=== PATIENT | male | born 1980 | race Caucasian/White ===

== ENCOUNTER 2019-05-20 20:44 | Emergency (ER) | payer SELFPAY ==
[~2019-05-20] VITALS: Ht 182.9 cm; Wt 89.8 kg
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
--- OUTSIDE RECORDS SUMMARY | 2019-05-20 20:48 | XMS REPORT | Clinical Summary ---
Author Author [facility] Address Unknown Phone Unavailable Care Team Providers Care Orchardist Name Role Phone Jorge Guillory MD PCP Allergies Comments Active Allergy Reactions Severity Noted Date Penicillins Anaphylaxis High 03/20/2019 Medications Not on file Active Problems Not on file Encounters Care Team Description Date Type Specialty Dakotah Angelo MD Feared condition not demonstrated (Primary Dx) 03/20/2019 Emergency Emergency Medicine after 05/19/2018 Social History Date Tobacco Use Types Packs/Day Years Used Former Smoker Smokeless Tobacco: Never Used Alcohol Use Drinks/Week oz/Week Comments Yes rarely Sex Assigned at Date Recorded Not on file Industry Job Start Date Occupation Not on file Not on file Not on file Travel End Travel History Travel Start No recent travel history available. Last Filed Vital Signs Time Taken Vital Sign Reading 03/20/2019 5:40 PM CDT Blood Pressure 120/74 03/20/2019 5:40 PM CDT Pulse 76 03/20/2019 5:40 PM CDT Temperature 36.4 C (97.6 F) 03/20/2019 5:40 PM CDT Respiratory Rate 16 03/20/2019 5:40 PM CDT Oxygen Saturation 100% - Inhaled Oxygen - Concentration 03/20/2019 2:16 PM CDT Weight 86.2 kg (190 lb) 03/20/2019 2:16 PM CDT Height 182.9 cm (6') 03/20/2019 2:16 PM CDT Body Mass Index 25.77 Plan of Treatment Not on file Procedures Comments Procedure Name Priority Date/Time Associated Diagnosis URINE DRUGS OF ABUSE STAT 03/20/2019 SCREEN 4:00 PM CDT ESTIMATED GFR STAT 03/20/2019 2:47 PM CDT ACETAMINOPHEN LEVEL STAT 03/20/2019 2:47 PM CDT SALICYLATE LEVEL STAT 03/20/2019 2:47 PM CDT ALCOHOL LEVEL, BLOOD STAT 03/20/2019 2:47 PM CDT COMPREHENSIVE METABOLIC STAT 03/20/2019 PANEL 2:47 PM CDT HC COMPLETE BLD COUNT STAT 03/20/2019 W/AUTO DIFF 2:47 PM CDT after 05/19/2018 Results * Urine drugs of abuse screen (03/20/2019 4:00 PM CDT) [facility] Amphetamine Negative [facility] screen, urine [facility] Barbiturate Negative [facility] screen, urine [facility] Benzodiazepine Positive (A) [facility] screen, urine [facility] Cocaine screen, Negative [facility] urine [facility] Methadone Negative [facility] metabolite [facility] (EDDP), urine [facility] Opiates screen, Negative [facility] urine [facility] Oxycodone Negative [facility] screen, urine [facility] Phencyclidine Negative [facility] screen, urine [facility] Tricyclic Negative [facility] screen, urine [facility] Cannabinoid Positive (A) [facility] screen, urine Comment: [facility] Drug screen minimum [place] concentration of detectability [facility]OSP[facility] Amphetamines 1000 ng/mL Barbiturates 200 ng/mL Benzodiazepines 300 ng/mL Cocaine 300 ng/mL Methadone 300 ng/mL Opiates 300 ng/mL Oxycodone 300 ng/mL Phencyclidine 25 ng/mL Cannabinoids 50 ng/mL Tricyclics 1000 ng/mL Results are from screening tests and should only be used for medical evaluation. Drug testing for legal purposes requires definitive (or confirmatory) testing methods, which are available upon request. Contact the laboratory if definitive testing is required. Specimen Urine Performing Organization Address City/State/Zipcode Phone Number [facility] [address] [address] PATHOLOGY AND GENOMIC MEDICINE [place] [facility] [address] [place] [address] [address] [place] [address] [facility] * Estimated GFR (03/20/2019 2:47 PM CDT) [facility] Estimated GFR >=90 mL/min/1.73 m2 [facility] Comment: [facility] G1 >=90 Normal or high G2 60-89Mildly decreased [id number] Mildly to moderately decreased [id number] Moderately to severely decreased G4 15-29Severely decreased G5 <15Kidney failure The eGFR was calculated using the Chronic Kidney Disease Epidemiology Collaboration (CKD-EPI) equation. Interpretation is based on recommendations of the National Kidney Foundation-Kidney Disease Outcomes Quality Initiative (NKF-KDOQI) published in 2014. Specimen Plasma specimen Performing Organization Address City/State/Zipcode Phone Number [facility] DEPARTMENT [address] [place] [address] PATHOLOGY AND GENOMIC MEDICINE [address] [place] [address] [facility] * CBC with platelet and differential (03/20/2019 2:47 PM CDT) WBC 12.8 (H) 4.5 - 11.0 k/uL [facility] RBC 4.87 4.40 - 6.00 M/uL [facility] HGB 14.4 14.0 - 18.0 g/dL [facility] HCT 42.5 41.0 - 51.0 % [facility] MCV 87.3 82.0 - 100.0 fL [facility] MCH 29.6 27.0 - 34.0 pg [facility] MCHC 33.9 31.0 - 37.0 g/dL [facility] RDW - SD 39.8 37.0 - 55.0 fL [facility] MPV 9.5 8.8 - 13.2 fL [facility] Platelet count 372 150 - 400 K/uL [facility] Nucleated RBC 0.00 /100 WBC [facility] Neutrophils 66.2 39.0 - 69.0 % [facility] Lymphocytes 25.6 25.0 - 45.0 % [facility] Monocytes 5.7 0.0 - 10.0 % [facility] Eosinophils 1.8 0.0 - 5.0 % [facility] Basophils 0.5 0.0 - 1.0 % [facility] Immature 0.2Comment: "Immature 0.0 - 1.0 % [facility] granulocytes granulocytes" (promyelocytes, [facility] myelocytes, metamyelocytes) [facility] Specimen Blood Performing Organization Address City/[facility] Phone Number [facility] [place] [address] PATHOLOGY AND GENOMIC MEDICINE [address] * Alcohol level, blood (03/20/2019 2:47 PM CDT) Alcohol None Detected mg/dl [facility] Alcohol percent None Detected 0.00 - 0.08 % [facility] Comment: [facility] Normal [facility] Detected Legal Intoxication in [place]80 mg/dL (0.08%) - Whole Blood Toxic Concentration 200 mg/dL (0.2%) Potentially Fatal3 50 - 500 mg/dL (0.35 - 0.5%) Specimen Plasma specimen Performing Organization Address City/[facility] Phone Number [facility] [place] [address] PATHOLOGY AND GENOMIC MEDICINE [address] * Acetaminophen level (03/20/2019 2:47 PM CDT) Acetaminophen <15.0 10.0 - 30.0 ug/mL [facility] Specimen Plasma specimen Performing Organization Address City/[facility] Phone Number [place] [phone] PATHOLOGY AND GENOMIC MEDICINE [address] * Salicylate level (03/20/2019 2:47 PM CDT) Salicylate <0.3 (L) 5.0 - 30.0 mg/dL [facility] Comment: [facility] Therapeutic Range: [place] 5 - 30 mg/dL [facility]OSPITAL Specimen Plasma specimen Performing Organization Address City/[facility]/Zipcode Phone Number [facility] [place] [address] PATHOLOGY AND GENOMIC MEDICINE [address] [address] [facility] * Comprehensive metabolic panel (03/20/2019 2:47 PM CDT) Sodium 142 135 - 148 mEq/L [facility] Potassium 3.9 3.5 - 5.0 mEq/L [facility] Chloride 107 99 - 109 mEq/L [facility] CO2 26 24 - 31 mEq/L [facility] Anion gap 9@ANIO 7 - 15 mEq/L [facility] BUN 9 8 - 24 mg/dL [facility] Creatinine 1.00 0.70 - 1.20 mg/dL [facility] Glucose 101 (H) 65 - 99 mg/dL [facility] Calcium 9.0 8.6 - 10.6 mg/dL [facility] Protein 6.5 6.3 - 8.2 g/dL [facility] Albumin 4.2 3.5 - 5.0 g/dL [facility] A/G ratio 1.83 0.70 - 3.80 [facility] Alkaline 32 30 - 115 U/L [facility] phosphatase [facility] AST 17 15 - 46 U/L [facility] ALT 19 10 - 55 U/L [facility] Total bilirubin 0.3 0.2 - 1.2 mg/dL [facility] Specimen Plasma specimen Performing Organization Address City/State/Zipcode Phone Number [facility] DEPARTMENT [address] [address] PATHOLOGY AND GENOMIC MEDICINE DANIE [address] [place] [address] [facility] after 05/19/2018 Advance Directives Patient has advance care planning documents on file. For more information, yossi boggs contact: Danie Putnam [address] [place] [address]
== END 2019-05-20 21:30 | disposition left against medical advice (07) ==
LOC: ER 20:44
DX: F99 Mental disorder, not otherwise specified (principal); F41.9 Anxiety disorder, unspecified; I10 Essential (primary) hypertension; M54.9 Dorsalgia, unspecified; F90.9 Attention-deficit hyperactivity disorder, unspecified type
CPT/HCPCS: 93005